=== PATIENT | female | born 1960 | race Caucasian/White ===

== ENCOUNTER → 2016-11-26 | Outpatient (CLI) | payer MEDICARE ==
[2016-05-07 13:39] VITALS: BP 115/69
[~2016-11-26] MED LIST: ALBU2.5V5 NEB; CHLO1TAB PO; CHOL2000 PO; ESTR1TAB15 PO; FISH1CAP PO; HYDR-2762 PO; LISI-334 PO; MEDR2.5T28 PO; MELO15TA23 PO; METO25TA4 PO; MULT1TAB52 PO; NAPR220C4 PO; OMEP20CA9 PO; PENI500T PO; TIZA4TAB PO; TRAZ300T2 PO
--- NOTE | 2016-11-26 15:08 | RAD ---
Pelvic ultrasound, 11/26/2016: History: Recent vaginal bleeding Transabdominal and transvaginal scans were obtained. The uterus was best demonstrated on the transvaginal scans. It measures 7.5 x 3.1 x 3.2 cm. The central uterine echo complex measures 3 mm in greatest AP dimension. Several Nabothian cysts are present in the cervical region. The ovaries were not visualized. No adnexal mass is seen. No free fluid is evident in the pelvis. IMPRESSION: 1. Nabothian cysts. 2. The uterus is otherwise unremarkable. 3. Nonvisualization of the ovaries.
== END | disposition home or self-care (01) ==
LOC: US 10:59
PROVIDERS: ATTEND Family Medicine
DX: N88.8 Other specified noninflammatory disorders of cervix uteri (principal)
CPT/HCPCS: 76830; 76856

== ENCOUNTER → 2017-08-31 | Outpatient (CLI) | payer MEDICARE | END | disposition home or self-care (01) | LOC: RAD 12:44 | DX: Z12.31 Encounter for screening mammogram for malignant neoplasm of breast (principal); N63.10 Unspecified lump in the right breast, unspecified quadrant; N63.41 Unspecified lump in right breast, subareolar; J44.9 Chronic obstructive pulmonary disease, unspecified; J84.10 Pulmonary fibrosis, unspecified; R92.0 Mammographic microcalcification found on diagnostic imaging of breast | CPT/HCPCS: 71046; 77063; 77067 ==

== ENCOUNTER → 2017-09-12 | Outpatient (CLI) | payer MEDICARE | END | disposition home or self-care (01) | LOC: MAMMO 13:03 | DX: R92.8 Other abnormal and inconclusive findings on diagnostic imaging of breast (principal) | CPT/HCPCS: 76641; 77065 ==

== ENCOUNTER → 2017-10-27 | Outpatient (CLI) | payer MEDICARE ==
[2017-10-27] MEDS: IOHEXOL 300 MG/ML 100ML VIAL. IV (10:23)
[2017-10-27] MEDS: IOHEXOL 240 MG/ML 50ML VIAL. PO (10:23)
== END | disposition home or self-care (01) ==
LOC: KCIC CT 08:37
DX: J44.9 Chronic obstructive pulmonary disease, unspecified (principal); I70.0 Atherosclerosis of aorta; K57.30 Diverticulosis of large intestine without perforation or abscess without bleeding; J84.10 Pulmonary fibrosis, unspecified
CPT/HCPCS: 71046; 74178; Q9966; Q9967

== ENCOUNTER → 2018-07-04 | Outpatient (CLI) | payer MEDICARE ==
[2016-05-07 13:39] VITALS: BP 115/69
[~2018-07-04] MED LIST changes: -HYDR-2762 PO; +HYDR-2765 PO
--- NOTE | 2018-07-04 14:31 | KCIC ---
CHEST PA LATERAL History: COPD, chills, night sweats, smoker Comparison: October 27, 2017 Findings: 2 views of the chest are submitted. There is no infiltrate, pneumothorax, or effusion. The cardiac silhouette is stable, within normal limits. There are again thoracic spinal stimulator leads. There is again small granuloma of the superior left hemithorax. Impression: 1. There is no radiographic evidence of acute cardiopulmonary disease. Electronically signed by: Harish Rodriguez MD (07/04/2018 2:26 PM) [facility]
== END | disposition home or self-care (01) ==
LOC: KCIC 12:38
PROVIDERS: ATTEND Family Medicine
DX: J44.9 Chronic obstructive pulmonary disease, unspecified (principal); R61 Generalized hyperhidrosis; R68.83 Chills (without fever)
CPT/HCPCS: 71046

== ENCOUNTER 2019-06-11 13:51 | Emergency (ER) | payer MEDICARE ==
[~2019-06-11] VITALS: Ht 162.6 cm; Wt 71.2 kg
[~2019-06-11 13:51] MED LIST changes: +OMEP20CA16 PO; -OMEP20CA9 PO; -TIZA4TAB PO; +TIZA4TAB2 PO
[2019-06-11 14:44] VITALS: BP 143/81
--- NOTE | 2019-06-11 15:45 | RAD ---
EXAM: Chest, 2 views. HISTORY: Left rib pain. COMPARISON: 07/04/2018 FINDINGS: 2 views chest are obtained. There is central predominant increased interstitial opacity likely due to chronic interstitial changes. There is a stable prominent cardiac silhouette. There is no pleural effusion or pneumothorax. There are dorsal column stimulator leads overlying the mid thoracic spine. IMPRESSION: Stable suspected chronic interstitial changes. Electronically signed by: Jessy Ly MD (06/11/2019 3:42 PM) [place] [id number]
[2019-06-11] MEDS ORDERED: ONDA4TAB12 PO (16:15)
[2019-06-11] MEDS ORDERED: METH4TAB2 PO (16:15)
[2019-06-11] MEDS ORDERED: HYDR15SO9 PO (16:15)
--- NOTE | 2019-06-11 16:16 | PHYS DOC ---
Past Medical History Past Medical History: COPD, GERD, Hypertension, Sciatica Additional Past Medical Histor: STENOSIS (MARKUS HUMPHREY APRN) Past Surgical History: Appendectomy, Cholecystectomy, Other Additional Past Surgical Histo: BACK SURGERY, STIMULATOR, ANURISM (MARKUS HUMPHREY APRN) Alcohol Use: None Drug Use: None (MARKUS HUMPHREY APRN) Adult General Chief Complaint Chief Complaint: RIB PAIN [facility] HPI Patient is a 58 year old Female with history of COPD current smoker who presents to the ED today complaining of cough and left posterior rib pain that has been going on since January. Patient states the pain is intermittent worse when she coughs and she believes she dislocated one of her ribs. (MARKUS HUMPHREY APRN) Review of Systems Review of Systems Constitutional: Denies fever or chills [] Eyes: Denies change in visual acuity, redness, or eye pain [] HENT: Denies nasal congestion or sore throat [] Respiratory: Reports cough and rib pain denies shortness of breath [] Cardiovascular: No additional information not addressed in HPI [] GI: Denies abdominal pain, nausea, vomiting, bloody stools or diarrhea [] : Denies dysuria or hematuria [] Musculoskeletal: Denies back pain or joint pain [] Integument: Denies rash or skin lesions [] Neurologic: Denies headache, focal weakness or sensory changes [] All other systems were reviewed and found to be within normal limits, except as documented in this note. (MARKUS HUMPHREY APRN) Allergies Allergies Allergies Coded Allergies Type Severity Reaction Last Updated Verified cephalexin Allergy Severe anaphylaxis 04/16/14 Yes codeine Allergy Intermediate N/V 04/16/14 Yes (ELIJAH MORATAYA DO) Physical Exam Physical Exam Constitutional: Well developed, well nourished, no acute distress, non-toxic appearance. [] HENT: Normocephalic, atraumatic, bilateral external ears normal, oropharynx moist, no oral exudates, nose normal. [] Eyes: PERRLA, EOMI, conjunctiva normal, no discharge. [] Neck: Normal range of motion, no tenderness, supple, no stridor. [] Cardiovascular:Heart rate regular rhythm, no murmur [] Lungs & Thorax: Bilateral breath sounds clear to auscultation [] Abdomen: Bowel sounds normal, soft, no tenderness, no masses, no pulsatile masses. [] Skin: Warm, dry, no erythema, no rash. [] Back: No tenderness, no CVA tenderness. [] Extremities: No tenderness, no cyanosis, no clubbing, ROM intact, no edema. [] Neurologic: Alert and oriented X 3, normal motor function, normal sensory function, no focal deficits noted. [] Psychologic: Affect normal, judgement normal, mood normal. [] (MARKUS HUMPHREY APRN) Current Patient Data Vital Signs Vital Signs Date Time Temp Pulse Resp B/P (MAP) Pulse Ox O2 Delivery O2 Flow Rate FiO2 06/11/19 14:44 98.2 74 18 143/81 (101) 93 Room Air 98.2 (MORATAYAELIJAH FLOREZ DO) EKG EKG [] (MARKUS HUMPHREY APRN) Radiology/Procedures Radiology/Procedures []PROCEDURE: CHEST PA & LATERAL EXAM: Chest, 2 views. HISTORY: Left rib pain. COMPARISON: 07/04/2018 FINDINGS: 2 views chest are obtained. There is central predominant increased interstitial opacity likely due to chronic interstitial changes. There is a stable prominent cardiac silhouette. There is no pleural effusion or pneumothorax. There are dorsal column stimulator leads overlying the mid thoracic spine. IMPRESSION: Stable suspected chronic interstitial changes. Electronically signed by: Jessy Ardon MD (06/11/2019 3:42 PM) [place] [id number] DICTATED and SIGNED BY: JESSY ARDON MD DATE: 06/11/19 1542 (MARKUS HUMPHREY APRN) Course & Med Decision Making Course & Med Decision Making Pertinent Labs and Imaging studies reviewed. (See chart for details) This is a 58-year-old female patient current smoker history of COPD presenting with rebound pain worse on the left side, symptoms began in January 2019. Patient's biggest concern today she believes she could've dislocated her ribs coughing. Chest x-ray is negative for any acute findings. Reassured she does not have a rib fracture. Discharged to home. Smoking cessation discussed. (MARKUS HUMPHREY APRN) Dragon Disclaimer Dragon Disclaimer This electronic medical record was generated, in whole or in part, using a voice recognition dictation system. (MARKUS HUMPHREY APRN) Departure Departure Impression: Primary Impression: COPD (chronic obstructive pulmonary disease) Additional Impression: Smoking addiction Disposition: HOME, SELF-CARE Condition: STABLE Referrals: AVERY PAPPAS MD (PCP) Follow up in 1-2 weeks Patient Instructions: Chronic Obstructive Pulmonary Disease Additional Instructions: You were evaluated in the emergency room, your chest x-ray is negative. Continue doing breathing treatments at home. Scripts Ondansetron (ONDANSETRON ODT) 4 Mg Tab.rapdis 1 TAB PO PRN Q6-8HRS, #16 TAB Prov: SUZISORENMARKUS APRN 06/11/19 Hydrocodone/Acetaminophen (Hydrocodone-Acetamn 7.5-325/15) 15 Ml Solution 10 ML PO Q6HRS PRN for PAIN, #100 MISC Prov: MARKUS HUMPHREY APRN 06/11/19 Methylprednisolone (MEDROL) 4 Mg Tab.ds.pk 1 PKG PO UD, #1 PKG Prov: SUZISORENMARKUS APRN 06/11/19 Attending Signature Attending Signature I have reviewed the PA/SOFTWARE SALES EXECUTIVE's note and plan of care. I was available for consultation as needed during the patient's visit in the emergency department. I agree with the clinical impression, plan, and disposition. (ELIJAH MORATAYA DO) Problem Qualifiers Primary Impression: COPD (chronic obstructive pulmonary disease) COPD type: unspecified COPD Qualified Codes: J44.9 - Chronic obstructive pulmonary disease, unspecified MARKUS HUMPHREY APRN Jun 11, 2019 16:16 ELIJAH MORATAYA DO Jun 12, 2019 06:20
== END 2019-06-11 16:21 | disposition home or self-care (01) ==
LOC: ER 13:51
DX: J44.9 Chronic obstructive pulmonary disease, unspecified (principal); F17.209 Nicotine dependence, unspecified, with unspecified nicotine-induced disorders; K21.9 Gastro-esophageal reflux disease without esophagitis; I10 Essential (primary) hypertension; Z88.1 Allergy status to other antibiotic agents; Z88.5 Allergy status to narcotic agent
CPT/HCPCS: 71046; 99284

== ENCOUNTER → 2019-06-26 | Outpatient (CLI) | payer MEDICARE ==
[2019-06-11 14:44] VITALS: BP 143/81
[~2019-06-26] MED LIST changes: +HYDR15SO9 PO; +METH4TAB2 PO; +ONDA4TAB12 PO
--- NOTE | 2019-06-27 20:10 | KCIC ---
History: Routine screening. Technique: Bilateral digital mammographic routine views were obtained with CAD - computer aided detection. Images were acquired with 2-D and 3-D technique. Comparison: Bilateral screening mammograms of 07/11/2013, 08/31/2017, right diagnostic mammogram and right breast ultrasound of 09/12/2017.. Findings: Breast Tissue Density B :The breast tissue is composed of mixed fatty and fibroglandular tissue. The left mammogram is negative. The right mammogram shows a developing cluster of calcifications in the middle third upper outer quadrant that was previously evaluated as suspicious and recommended for biopsy. There are no postbiopsy changes associated with these calcifications and there is no biopsy marker. It is uncertain if the patient ultimately followed through with the previous biopsy recommendation. Impression: Incomplete. Right breast needs additional imaging. Magnification views of the right breast in the area of developing calcifications BI-RADS Category 0: Incomplete: Need additional imaging evaluation. Magnification views of the right breast are recommended. A mammogram does not have 100% sensitivity and therefore a negative imaging study should not delay further work up of a suspicious abnormality. The patient will receive a letter with the results in the mail. Patient information is entered into the reminder system with a target due date for the next screening mammogram. The patient will receive a reminder. "Our facility is accredited by the [employer] Mammography [employer]." BI-RADS 0 -- incomplete assessment
== END | disposition home or self-care (01) ==
LOC: KCIC MAMMO 09:27
PROVIDERS: ATTEND Family Medicine
DX: Z12.31 Encounter for screening mammogram for malignant neoplasm of breast (principal)
CPT/HCPCS: 77063; 77067

== ENCOUNTER → 2019-07-03 | Outpatient (CLI) | payer MEDICARE ==
[2019-06-11 14:44] VITALS: BP 143/81
--- NOTE | 2019-07-03 12:05 | KCIC ---
Right breast diagnostic digital mammograms: Reason for examination: Calcifications on screening mammogram. Comparison is made to previous studies dated back to 07/11/2013. Coned compression magnification views were obtained in CC and true lateral projections. With these additional views, clustered calcifications persists at the 9:30 position approximately 4.5 cm from the nipple. This cluster calcifications has progressed since previous exam. Further evaluation with stereotactic biopsy is again recommended. On true lateral projection, there also appear to be some clustered calcifications which are not seen on cc view and may represent vascular calcification. There continues to be a small nodular density anteriorly at the 10:00 A position which is unchanged. IMPRESSION: Clustered calcifications at the 9:30 position 4.5 cm from the nipple in the right breast. Stereotactic biopsy is again recommended. BI-RADS Category 4: Suspicious. I have discussed these findings with the patient and the patient's physician will be notified about these findings by the nurse navigator. "Our facility is accredited by the [employer] Mammography Program." This patient's information has been entered into a reminder system for the patient to be notified with the results of her examination and a target date for the next mammogram. Electronically signed by: Nanci Briscoe MD (07/03/2019 12:02 PM) [id number]
== END | disposition home or self-care (01) ==
LOC: KCIC MAMMO 11:04
PROVIDERS: ATTEND Family Medicine
DX: R92.1 Mammographic calcification found on diagnostic imaging of breast (principal); N63.11 Unspecified lump in the right breast, upper outer quadrant
CPT/HCPCS: 77065

== ENCOUNTER → 2019-07-10 | Outpatient (CLI) | payer MEDICARE ==
[2019-06-11 14:44] VITALS: BP 143/81
[2019-07-10 15:25] LABS: BASO # 0.1 x10^3/uL (0.0-0.2); BASO % 1 % (0-3); EOS % 0 % (0-3); HEMATOCRIT 46.9 % (36.0-47.0); HEMOGLOBIN 15.7 g/dL (12.0-15.5); LYMPH # 2.5 x10^3/uL (1.0-4.8); LYMPH % 23 % (24-48); MEAN CORPUSCULAR HEMOGLOBIN 31 pg (25-35); MEAN CORPUSCULAR HGB CONC 33 g/dL (31-37); MEAN CORPUSCULAR VOLUME 94 fL (79-100); MONO # 0.6 x10^3/uL (0.0-1.1); MONO % 5 % (0-9); NEUT # 7.9 x10^3/uL (1.8-7.7); NEUT % 71 % (31-73); PLATELET COUNT 297 x10^3/uL (140-400); RED BLOOD COUNT 4.98 x10^6/uL (3.50-5.40); RED CELL DISTRIBUTION WIDTH 14.7 % (11.5-14.5); WHITE BLOOD COUNT 11.2 x10^3/uL (4.0-11.0)
[2019-07-10 16:06] LABS: ALBUMIN 3.3 g/dL (3.4-5.0); ALBUMIN/GLOBULIN RATIO 0.8 (1.0-1.7); CALCIUM 8.8 mg/dL (8.5-10.1); GFR 57.1; POTASSIUM 4.5 mmol/L (3.5-5.1); TOTAL BILIRUBIN 0.5 mg/dL (0.2-1.0); TOTAL PROTEIN 7.3 g/dL (6.4-8.2)
[2019-07-10 16:07] LABS: CHOLESTEROL/HDL RATIO 5.5
--- NOTE | 2019-07-10 16:24 | RAD ---
EXAM: Thoracic spine, 3 views; left ribs, 3 views. HISTORY: Chest wall pain. COMPARISON: 04/11/2019 FINDINGS: 3 views of the thoracic spine and left ribs are obtained. There is mild S-shaped thoracic curvature. There is no listhesis. The vertebral sigala are normal in height. There is minimal endplate remodeling at C6-C7 and the lower thoracic levels. There is a dorsal column stimulator terminating at T8. There are mildly displaced lateral left seventh, eighth and ninth rib fractures. There are coarse likely clips. IMPRESSION: 1. Mildly displaced lateral left seventh, eighth and ninth rib fractures. 2. Minimal degenerative change involving the thoracic spine and mild S-shaped thoracic curvature Electronically signed by: Jessy Ly MD (07/10/2019 4:21 PM) [facility] [place]
--- NOTE | 2019-07-10 16:24 | RAD ---
EXAM: Thoracic spine, 3 views; left ribs, 3 views. HISTORY: Chest wall pain. COMPARISON: 04/11/2019 FINDINGS: 3 views of the thoracic spine and left ribs are obtained. There is mild S-shaped thoracic curvature. There is no listhesis. The vertebral sigala are normal in height. There is minimal endplate remodeling at C6-C7 and the lower thoracic levels. There is a dorsal column stimulator terminating at T8. There are mildly displaced lateral left seventh, eighth and ninth rib fractures. There are coarse likely clips. IMPRESSION: 1. Mildly displaced lateral left seventh, eighth and ninth rib fractures. 2. Minimal degenerative change involving the thoracic spine and mild S-shaped thoracic curvature Electronically signed by: Jessy Ly MD (07/10/2019 4:21 PM) [facility] [place]
== END | disposition home or self-care (01) ==
LOC: RAD 14:49
PROVIDERS: ATTEND Family Medicine
DX: S22.42XA Multiple fractures of ribs, left side, initial encounter for closed fracture (principal); M47.814 Spondylosis without myelopathy or radiculopathy, thoracic region; X58.XXXA Exposure to other specified factors, initial encounter; Y93.89 Activity, other specified; Y92.89 Other specified places as the place of occurrence of the external cause; Y99.8 Other external cause status
CPT/HCPCS: 36415; 71100; 72072; 80053; 80061; 85025

== ENCOUNTER → 2019-07-30 | Outpatient (CLI) | payer MEDICARE ==
[~2019-07-30] MED LIST changes: +FLUO40CA2 PO; +LIDOCAINE 2%/EPI 1:100,000 20 ML VIAL. IJ ONE; +LIDOCAINE 2%/EPI 1:100,000 20 ML VIAL. ONE
--- NOTE | 2019-07-30 14:04 | RAD ---
DATE: 07/30/2019 EXAM: DIGITAL DIAGNOSTIC RT HISTORY: Right abnormal breast new calcifications COMPARISON: 06/26/2019 mammographic images This study was interpreted with the benefit of Computerized Aided Detection (CAD). Breast Density: SCATTERED The breast parenchyma shows scattered fibroglandular densities. Breast parenchyma level B. FINDINGS: Biopsy cavity is present at the right upper outer breast where calcifications were previously identified. No definite or significant residual calcification noted after biopsy. No significant collection identified. Separate finding of a mass at the right upper anterior aspect near the nipple is stable compared to previous exams. Biopsy clip marker however is fairly inferior to the biopsy cavity by approximately 2.3 cm on the MLO projection. IMPRESSION: Successful removal of calcifications at the right upper-outer breast. Biopsy clip marker however is present inferior in location to the site of the calcifications.
--- NOTE | 2019-08-01 14:07 | PATHOLOGY ---
[facility] Accession Number: [id number] . 01 Material submitted: . breast - RIGHT BREAST TISSUE. Modifiers: right . 01 Clinical history: . Right breast microcalcifications . 02 Diagnosis: Breast tissue, right breast calcifications stereotactic biopsies: - Focal periductal and nodular stromal sclerosis focally containing coarse calcifications. - Scattered microcalcifications identified within atrophic terminal duct/lobular units. MBR 08/01/2019 1303 Local . 02 Comment: Sections of the right breast stereotactic biopsy reveal predominantly fatty breast tissue. There are small foci of periductal and nodular stromal sclerosis which focally contain coarse calcifications. There are also scattered microcalcifications within atrophic terminal duct/lobular units. There is no atypia or evidence of malignancy. (JPM/db; 08/01/2019) . 02 Electronically signed: . Robert Jane MD, Pathologist NPI- [id number] . 01 Gross description: . The specimen is received in formalin, labeled "Mishel Sewell, right breast calcifications" and consists of an orange cassette containing yellow orange breast tissue measuring 2.6 x 2.5 x 0.6 cm in aggregate which is transferred to cassette A1. The specimen was collected on 07/30/2019 no time in formalin provided. The time out of formalin is 11:50 PM on 07/30/2019. (SDY; 07/30/2019) SYU/SYU 07/30/2019 1700 Local . 02 Pathologist provided ICD-10: N60.31 . 02 CPT . 247651 Specimen Comment: A courtesy copy of this report has been sent to [phone], [phone] Specimen Comment: [id number], Specimen Comment: Report sent to , and Performed at: 01 [facility] [address], [place], [place] [id number] MD Michele Coburn MD Phone: [phone] Performed at: 02 [facility] [address] [place], [place] [id number] MD Robert Jane MD Phone: [phone]
--- NOTE | 2019-08-01 17:15 | RAD ---
Examination: STEREOTACTIC BREAST BIOPSY RT History: Abnormal calcifications Comparison/Correlation: None Findings: Risks and benefits of stereotactic guided biopsy of right upper-outer breast calcifications were discussed with the patient and informed consent was obtained. Superior approach was utilized. After obtaining paired images, cleansing with ChloraPrep was performed. 7 cc 1% lidocaine was administered. Scalpel incision was made. An 8 gauge core biopsy needle was placed. Images demonstrated the needle to be in place. The needle was fired. Images demonstrated the needle to be in place. A total of 12 samples were obtained. Specimen radiograph demonstrated the calcifications of interest. Images were reviewed on a mammographic workstation. The patient tolerated the procedure well without immediate complications. Impression: Successful stereotactic biopsy of the right breast. Specimens sent to the lab. Pathology report was made available 2 days the specimens were provided. Specimens are stated to consist of stromal sclerosis and coarse calcifications. Scattered microcalcifications. No atypia or malignancy. Findings are concordant with imaging. Six-month follow-up right breast mammographic examination is recommended.
== END ==
LOC: MAMMO 12:12
PROVIDERS: ATTEND Surgery
DX: R92.0 Mammographic microcalcification found on diagnostic imaging of breast (principal)
CPT/HCPCS: 19081; 77022; 77065; 88305; C1713; 19085

== ENCOUNTER → 2019-08-06 | Outpatient (CLI) | payer MEDICARE ==
[~2019-08-06] MED LIST changes: +BUPIVACAINE MPF 0.25% 10 ML VIAL. ONE; +IOHEXOL 180 MG/ML 10 ML VIAL. ONE; -LIDOCAINE 2%/EPI 1:100,000 20 ML VIAL. IJ ONE; -LIDOCAINE 2%/EPI 1:100,000 20 ML VIAL. ONE; +methylPREDNISolone ACETATE 80 MG/ML VIAL. ONE
--- NOTE | 2019-08-06 21:03 | PAIN ---
DATE OF SERVICE: 08/06/2019 INITIAL CONSULTATION FOR PAIN CLINIC CHIEF COMPLAINT: Left thoracic pain. HISTORY OF PRESENT ILLNESS: The patient is a 58-year-old female who presents with history of pain and history of fractured ribs on the left at T7, T8 and T9 lateral ribs on the left. The patient reports she is unsure of any specific accident but she has significant cough and does have a history of COPD, which she reports has exacerbated recently and believes this may be the cause. She does have documented fractures, has appointment to see a cardiothoracic surgeon about surgical fixation as well. She has significant pain where she is unable to sleep, only able to lie on the right or left side or her back, which is causing her to be more fatigued and more painful during the day. The patient reports it is only on the left side, mostly in the lateral aspect of the thoracic cage, none on the right. The patient reports it is constant, sharp, stabbing, burning, worse at night, wakes him from sleep 4 or 5 times, can affect her ability to walk as well at times from the pain. The patient has had some chiropractic treatment which has not been helpful significantly for this type pain, has had no other treatments currently except for pain medication orally. PAST MEDICAL HISTORY: Significant for hypertension, anxiety, neuropathy, Majano's esophagitis. PREVIOUS SURGERY: Include appendectomy, cholecystectomy, section, cervical cancer and excision of vulvar cancer, I and D of the buttock, left breast biopsy, brain aneurysm and previous spinal cord stimulator placement in 2011. The patient rates her disability rating from 0-10, 10 being the worst, is an 8 in all categories, family home responsibility, recreation, social activity, occupation, self-care and life support activities. CURRENT MEDICATIONS: Include ondansetron and hydrocodone, fluoxetine, metoprolol, multivitamins, naproxen, vitamin D, fish oil, albuterol inhaler, omeprazole, lisinopril, meloxicam, estradiol, tizanidine and trazodone. ALLERGIES: THE PATIENT IS ALLERGIC TO SULFA. FAMILY HISTORY: Significant for no major medical problems or conditions that she lists. SOCIAL HISTORY: The patient does not drink alcohol. Still smokes about 1 pack a day, has for the past 40 years, continues to smoke. Denies any illegal, illicit or recreational drugs. Lives locally and lives with her daughter. REVIEW OF SYSTEMS: The patient's review of systems is positive for those items mentioned in history of present illness. All systems reviewed and otherwise negative. It is complete, full and well documented on the patient's chart. PHYSICAL EXAMINATION: VITAL SIGNS: The patient's blood pressure is 129/80, pulse 91, respirations 18, temperature 97.9 degrees Fahrenheit, height is 5 feet 4 inches, weight 153 pounds. GENERAL: The patient is awake, alert, oriented, appropriate, very pleasant demeanor. HEENT: Shows normocephalic, atraumatic. The patient wears eye glasses. Extraocular movements are intact and symmetrical. Oral cavity: Mucous membranes moist and pink. Dentition is intact. NECK: Shows anterior throat supple without palpable lymphadenopathy noted. Swallow reflex symmetrical. CHEST: Shows normal on inspection. Breath sounds are clear bilaterally. HEART: Shows S1, S2 clear. ABDOMEN: Soft, nontender, nondistended. BACK: Shows spine grossly in the midline, normal-appearing cervical lordotic curvature, slightly increased thoracic kyphotic curvature and flattening of lumbar lordotic curvature with well-healed surgical scars noted from previous lumbar spinal cord stimulator with palpable battery over the right gluteus, which is nontender with well-healed surgical scar as well. The patient's thorax shows some significant tenderness with even moderate displacement and pressure over the mid lateral to the mid axillary line on the left side only. Right side is nontender specifically with palpation. The patient shows tenderness with deep breathing as well and with produced cough, significant pain where she is holding and bracing her left flank. IMPRESSION: 1. This is a 58-year-old female with approximately 6 months of pain in left thorax, worst over the past 1 month after coughing with documented left sided rib fractures T7, 8 and 9. 2. Chronic obstructive pulmonary disease. 3. Hypertension. PLAN: Options were discussed with the patient including conservative medical managements, continued therapies, physical and interventional techniques. She would like to pursue interventional techniques. We discussed intercostal blocks on the left using description as well as anatomical models to describe the procedure. Risks were then discussed including, but not limited to bleeding, infection, possibility of extravasation of local anesthetic and absorption including resuscitative measures if necessary, pneumothorax, side effects of steroid medication, exposure to fluoroscopy and poor results regarding pain control. The patient understands and wished to proceed. The patient will return to clinic in approximately 1 week for followup. She was counseled on return appointment, activity level and side effects to be aware of. DIAGNOSIS: Left rib fracture at T7, 8 and 9. PROCEDURE: Intercostal nerve blocks T6, 7, 8, 9 and 10 under fluoroscopic guidance on the left using sterile prep and drape, using local anesthetic. MEDICATION INJECTED: A total of 5 mL of 0.25% bupivacaine after negative aspiration at each injection site and a total of 80 mg Depo-Medrol and total of 2.5 mL of contrast. CONDITION AT DISCHARGE: Stable. The patient tolerated the procedure well, had no complications. PANCHO GARRETT MD DR: GRZEGORZ/anne marie JOB#: [id number] / [id number] AVERY Adames MD
== END ==
LOC: PNCL 13:03
PROVIDERS: ATTEND Anesthesiology
DX: M54.6 Pain in thoracic spine (principal); I10 Essential (primary) hypertension; F41.9 Anxiety disorder, unspecified; K22.70 Barrett's esophagus without dysplasia; F17.210 Nicotine dependence, cigarettes, uncomplicated; Z90.49 Acquired absence of other specified parts of digestive tract; Z85.41 Personal history of malignant neoplasm of cervix uteri; Z98.890 Other specified postprocedural states; Z88.1 Allergy status to other antibiotic agents
CPT/HCPCS: 64420; 77002; J1040; J3490; Q9965